=== PATIENT | male | born 1975 | race Caucasian/White ===

== ENCOUNTER 2023-09-02 16:18 | Emergency (ER) | payer OTHER, SELFPAY ==
--- NOTE | 2023-09-02 16:21 | ED.EYEPROB ---
HPI - Eye Problem General Chief complaint: Skin/Abscess/Foreign Body Stated complaint: Right Eye Irritation Time Seen by Provider: 09/02/23 16:20 Source: patient Mode of arrival: ambulatory Limitations: no limitations History of Present Illness HPI Narrative: Patient is a 48-year-old male that presents with right eyebrow swelling and tenderness. Patient states he had eyebrow pierced ears ago and has always felt old scar tissue. Reports yesterday area started to swell and this morning it was tender to touch. Reports there is a small had but has not drained. Denies any surrounding redness or warmth. Denies any vision changes Related Data Allergies Allergy/AdvReac Type Severity Reaction Status Date / Time No Known Allergies Allergy Verified 09/02/23 16:38 Review of Systems Review of Systems: All systems reviewed & are unremarkable except as noted in HPI and below Constitutional: Constitutional: Denies body ache(s), Denies fever(s), Denies headache(s), Denies malaise and Denies weakness Eyes: Eyes: Denies blurry vision, Denies eye discharge, Denies irritation, Denies itchy eyes, Denies loss of vision, Reports eye pain and Reports other (eye brow swelling) ENT: Denies otalgia, Denies headache(s), Denies nasal discharge, Denies sinus pain and Denies sore throat Cardiovascular: Cardiovascular: Denies chest pain, Denies irregular heart rhythm and Denies dyspnea Respiratory: Respiratory: Denies dyspnea Gastrointestinal: Gastrointestinal: Denies abdominal pain, Denies diarrhea, Denies nausea and Denies vomiting Musculoskeletal: Musculoskeletal: Denies back pain, Denies myalgias and Denies arthralgias Integumentary/Breasts: Skin/Breast: Denies pruritus and Denies rash Neurologic: Denies headache(s), Denies loss of vision and Denies weakness Psychiatric: Psychiatric: Reports no additional psychiatric complaints Allergic/Immunologic: Allergic/Immunologic: Reports itchy eyes PMFSH Past Medical History Medical History Biceps tendon tear Right forearm pain Tendinopathy of right biceps tendon Surgical History Surgical History History of appendectomy History of surgery on wrist Family History Family History Unknown Hypertension Arthritis Cardiovascular disease Social History Social History Smoking status: Former smoker Tobacco type: cigarettes Second hand tobacco smoke exposure: Yes Smoking end date: 04/25/13 Alcohol intake: current Substance use: unknown Living arrangements: with family Occupation/Education: occupation 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 There is no relevant family history pertinent to the presenting complaint. Exam Const: General: cooperative, healthy appearing, comfortable, no acute distress and well nourished Nutritional Appearance: well nourished Orientation/consciousness: patient oriented x3 Limitations: no limitations HENMT: Head: normal to inspection, normocephalic and atraumatic Ears: external ears normal Face/Nose/Sinus: Normal external nose present, normal facial exam and face symmetric Face and sinus: normal facial exam and face symmetric Mouth: Yes lip normal Eyes: General: appearance normal, both eyes and all related structures Visual Herr: normal visual herr by confrontation Alignment and Position: alignment normal and position normal Periorbital: periorbital findings normal Eyelids: eyelid abnormality right upper eyelid swelling and tenderness; without erythema and no crusting or scaling of lid margins Conju
[2023-09-02 16:35] VITALS: BP 146/84; PULSE 86; RESP 16; TEMP 36.8; O2SAT 98
== END 2023-09-02 17:00 | disposition home or self-care (01) ==
PROVIDERS: Emergency Provider Nurse Practitioner Family
DX: D23.39 Other benign neoplasm of skin of other parts of face (principal); Z87.891 Personal history of nicotine dependence
CPT/HCPCS: 99213; G0463

== ENCOUNTER 2025-01-09 18:16 | Emergency (ER) | payer OTHER, SELFPAY ==
[2025-01-09 18:25] VITALS: BP 162/81; PULSE 90; RESP 16; TEMP 36.6; O2SAT 100
--- NOTE | 2025-01-09 18:37 | ED_ITS ---
HPI - Dental/Oral General Chief complaint: Dental/Oral Stated complaint: BROKEN TOOTH Time Seen by Provider: 01/09/25 18:25 Source: patient and RN notes reviewed Mode of arrival: ambulatory Limitations: no limitations History of Present Illness HPI Narrative: 49-year-old male presents Express Care requesting antibiotics for dental procedure. Patient says he has a fractured tooth his left lower mouth. Patient says that is less same without a prescription for an antibiotic preprocedure. Patient says he has a history of a heart murmur but denies any prosthetic valves, congenital heart defects, heart surgery, or any known valvular disease. Patient said he had strep with a child may have had valvular damage from it but he is unsure. She has never seen a human resources clerk. Patient denies any chest pain, shortness of breath, dizziness, lightheadedness, palpitations, or any other symptoms. Related Data Allergies Allergy/AdvReac Type Severity Reaction Status Date / Time No Known Allergies Allergy Verified 01/09/25 18:25 Review of Systems Review of Systems: CONSTITUTIONAL: Denies fever, chills, or sweats. EYES: Denies visual changes, redness, or discharge. ENT: Denies rhinorrhea, congestion, sore throat, or otalgia. MOUTH: Positive for Fractured tooth. CARDIOVASCULAR: Denies chest pain, palpitations, dizziness, lightheadedness, or edema. RESPIRATORY: Denies cough, wheezing, or dyspnea. GASTROINTESTINAL: Denies abdominal pain, nausea, vomiting, or diarrhea. GENITOURINARY: Denies dysuria or hematuria. SKIN: Denies rash or itching. MUSCULOSKELETAL: Denies back pain, joint pain, or myalgia. NEUROLOGIC: Denies headache, numbness, or weakness. PSYCHIATRIC: Denies anxiety or depression. All other systems reviewed are negative, except as documented in HPI. 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 There is no relevant family history pertinent to the patient complaint. Exam Narrative: GENERAL: This is a well-nourished, well-developed adult, in no apparent distress. They are non ill-appearing, nontoxic appearing. HEAD: normocephalic, atraumatic. EYES: Sclera clear/white. Conjunctiva normal. Vision is grossly intact. Extraocular movements intact EARS: External ears normal, Hearing grossly intact. NOSE: External nose normal THROAT: Mucous membranes moist, posterior pharynx clear, without erythema or swelling. Uvula midline. OROPHARYNX:Good dentition. Fracture to if to the 2nd molar left lower gum. Gingivitis, no area of fluctuance, no induration, no erythema, no swelling, no abscess formation. Tongue is normal. NECK: Neck supple, CARDIOVASCULAR: Regular rate and rhythm without murmurs, gallops, clicks, or rubs. RESPIRATORY: Clear to auscultation. Breath sounds equal bilaterally. No wheezes, rales, or rhonchi. SKIN: warm, Dry, intact with no suspicious lesions or rash, good texture and turgor. NEURO: awake, alert, and oriented to person, place and time. There were no obvious focal neurologic abnormalities. EXTREMITIES: No joint tenderness, effusion, or edema noted. Course Course Emergency Course: Portions of this record may have been created with voice recognition software Level of Care: Express Care Visit Vital Signs Vital signs: Vital Signs Temperature 98 F 01/09/25 18: Pulse Rate 90 01/09/25 18: Respiratory Rate 16 01/09/25 18: Blood Pressure 162/81 H 01/09/25 18:25 Pulse Oximetry 100 01/09/25 18:25 Temperature 98 F 01/09/25 18: Pulse Rate 90 01/09/25 18:25 Respiratory Rate 16 01/09/25 18:25 Blood Pressure 162/81 H 01/09/25 18:25 Pulse Oximetry 100 01/09/25 18:25 Reviewed MDM - Dental/Oral MDM Narrative Medical decision making narrative: Patient's fractured to the left lower gum appears to be 2nd molar. No obvious murmur auscultated. Dentist will not see patient without antibiotic. Prescription amoxicillin sent to pharmacy. Advised to take 30-60 minutes prior to dental procedure. Advised patient to go see a human resources clerk if he is concerned for any heart problems. Discussed physical exam findings. Advised supportive measures and signs/symptoms to go to the ER. Pt is appropriate for outpt treatment and f/u. Differential Diagnosis Differential diagnosis: Likely other (Heart murmur, valvular disease, dental abscess, fractured tooth, dental infection) Critical Care Time Critical Care Time Critical Care Time: No Discharge Plan Discharge Clinical Impression: Need for antibiotic prophylaxis for dental procedure Patient Disposition: Home Condition: Stable Instructions: Antibiotic Form Additional Instructions: Take the amoxicillin 30-60 minutes prior to her dental procedure. Follow-up PCP for any concerns. Patient Language: Hungarian Prescriptions: New amoxicillin 500 mg tablet 2,000 mg PO ONCE Qty: 4 0RF Rx Instructions: Take 30-60 minutes before your dental procedure. Follow-up/Referrals: PHYSICIAN,CLINICAL LABORATORY AIDES TEACHER [Primary Care Provider] - Time of Disposition: 18:34
== END 2025-01-09 18:36 | disposition home or self-care (01) ==
DX: S02.5XXA Fracture of tooth (traumatic), initial encounter for closed fracture (principal); X58.XXXA Exposure to other specified factors, initial encounter; Z87.891 Personal history of nicotine dependence
CPT/HCPCS: 99213; G0463